=== PATIENT | female | born 1950 | race Caucasian/White ===

== ENCOUNTER → 2016-11-22 | Outpatient (CLI) | payer OTHER ==
[~2016-11-22] MED LIST: ACTONEL30 MG PO; COZAAR PO; FEMRING VG; LORTAB 5/500 TA1 TA1 PO; PERCOCET PO
--- NOTE | ~2016-11-22 | US6 ---
[facility] A Service of [facility] & [facility] RADIOLOGY TEXT RESULTS PATIENT: JAMES WHITING LOCATION: [facility] : 52 UNIT #: [id number] AGE: [address]: Ridge Vila MD SEX: F ORDER DR: [id number] [facility] [address] [place], [place] [address] [id number] MR#: [id number] Acc #: [id number] NAME: JAMES WHITING : 1950 SEX: F STUDY DATE/TIME: 11/22/2016 7:38 UNIT: [facility] ROOM: STUDY DESCRIPTION: US Abdominal Limited Attending Physician: Ridge Vila M.D. Ordering Physician: Ridge Vila M.D. Primary Care Physician: Ridge Vila M.D. MEDICAL IMAGING REPORT This report is preliminary unless electronic signature is present EXAM Right upper quadrant ultrasound 11/22/2016 HISTORY Abdomen pain and chest pain radiating to shoulder blades for 3 months. FINDINGS Ultrasound examination of the gallbladder is negative. There is no cholelithiasis, gallbladder wall thickening, or bile duct dilatation. The visualized liver is negative. IMPRESSION Negative gallbladder ultrasound examination. Dictated by... Elliott Mckeon M.D. THIS IS AN ELECTRONICALLY VERIFIED REPORT Elliott Mckeon M.D. at 11/22/2016 11:22 AM MARYELLEN/michelle TD: 11/22/2016 09:47 JOB #: [id number] MEDICAL IMAGING REPORT Page 1 of 1 COPY
== END | disposition home or self-care (01) ==
LOC: CGUS 07:06
DX: R10.11 Right upper quadrant pain (principal); R10.13 Epigastric pain
CPT/HCPCS: 76705